=== PATIENT | male | born 1985 | race Caucasian/White ===

== ENCOUNTER 2021-11-04 09:58 | Emergency (ER) | payer MEDICAID, SELFPAY ==
[2021-11-04 09:59] VITALS: BP 125/75; PULSE 84; RESP 18; TEMP 36.1; O2SAT 100; BMI 22.4
--- NOTE | 2021-11-04 10:30 | RAD_ITS ---
STUDY: X-RAY CHEST REASON FOR EXAM: Male, 36 years old. ] Injury following a fall. TECHNIQUE: PA and lateral views of the chest. COMPARISON: None. FINDINGS: Hyperinflation. Scattered calcified granulomas. No acute abnormality is seen. There is no demonstrated pleural abnormality. Normal size heart. Normal mediastinum and bob. Normal visualized pulmonary arteries. Normal visualized aortic arch and descending thoracic aorta. Normal visualized thoracic spine. Normal visualized ribs, clavicles, and shoulders. There is no demonstrated abnormality of the visualized soft tissue structures of the upper abdomen. RAD/Chest PA and Lateral IMPRESSION: Normal x-ray examination of the chest. Electronically Signed: Brad Pelaez MD at 11:14 EDT ,
--- NOTE | 2021-11-04 10:33 | ED.VIS.CHEST ---
HPI History of Present Illness Chief Complaint: Chest Other Detail of Chief Complaint: Fell injuring right lateral rib cage Informant: patient Onset/Context/Timing Onset: Yesterday Activity at onset: sudden Timing: Continuous Quality: Positive for Pain and Sharp Location: Right Chest Current Severity: Moderate Maximum Severity: Moderate Worsened By: Movement of Arm and Movement of Torso Relieved By: Remaining Still Narrative Narrative: 36-year-old male no seen past medical history. Was wrestling with his 15-year-old son yesterday. He fell and injured his right rib cage on the floor. Complaining of pain to his right lateral rib cage. No prior history. No other complaints. Did not hit his head. No LOC. Prior Similar Symptoms: No Recent Illness/Hospitalization: No CVD Risk Factors: Negative for Hypertension, Diabetes and Hypercholesterolemia PE Risk Factors: Negative for Recent Travel/Surgery, Recent Immobilization, Prior DVT or PE and OCP + Smoking + >/=35 PFSH PFSH Medical History no medical history no medical history Home Medications hydrocodone-acetaminophen 1 tab PO Q4H PRN 3 Days #10 tab NS 11/04/21 [Rx Last Taken Unknown] Allergy/AdvReac Type Severity Reaction Status Date / Time No Known Allergies Allergy Verified 11/04/21 10:01 Surgical History no surgical history no surgical history Social History Smoking Status: Current every day smoker tobacco type: e-cigarettes ROS ROS ED ROS Narrative Denies recent illness. Review of Systems ROS Unobtainable: Denies due to encephalopathy Constitutional Constitutional ED: Denies fever(s) Eyes Eyes: Denies none ENT ENT ED: Denies ear pain Cardiovascular Cardiovascular: Reports as per HPI and chest pain Respiratory/Chest Respiratory/Chest: Denies cough or dyspnea Gastrointestinal Gastrointestinal: Denies abdominal pain or nausea Genitourinary Genitourinary ED: Denies dysuria Musculoskeletal Musculoskeletal: Denies myalgias Integumentary Denies rash Neurologic Neurologic: Denies headache(s) Psychiatric Psychiatric: Denies depression Endocrine Endocrinology: Denies polyuria Hematologic/Lymphatic Hematologic/Lymphatic: Denies easy bruising Allergic/Immunologic Allergic/Immunologic ED: Denies urticaria EXAM Physical Exam Narrative Exam Narrative: 36-year-old male no acute distress standing upright in the room. Vital signs stable afebrile. Pulse ox 100% on room air no signs hypoxia. HEENT exam unremarkable. Moist mucous membranes. Atraumatic. Neck nontender. Lungs clear to auscultation bilaterally. Heart regular rate and rhythm no murmur. Rate about 80. Chest wall tender on the right lateral rib cage. No crepitance or subcu air. No bruising or bony deformities. Abdomen soft nontender. Otherwise exam normal. Const Vital Signs: 11/04/21 09:59 Temperature 97 F L Temperature Source Temporal Pulse Rate 84 Respiratory Rate 18 Blood Pressure 125/75 H Blood Pressure Mean 91 Pulse Ox 100 Oxygen Delivery Method Room Air Positive well nourished and well developed; Negative for obese, cachectic, contractures or unkempt General Appearance ED: well developed and NAD; Negative for unkempt, cachectic, contractures or pallor Nutritional Appearance: Negative for cachectic or obese HEENT Reports moist mucous membranes normocephalic and atraumatic Eyes PERRL and EOMs intact bilaterally General Eye ED: Negative for pale conjunctiva or scleral icterus Neck no lymphadenopathy, supple and no JVD General: Negative for tenderness Chest Wall inspection of chest normal and palpation of chest normal Chest Narrative: Right lateral chest wall tenderness. No crepitance or subcu air. No bruising. No bony deformity. Chest: tenderness Resp normal respiratory effort and clear to auscultation bilaterally Effort and Inspection: respiratory distress Auscultation: Negative for rales, rhonchi or wheezes Cardio regular rate, regular rhythm, S1 normal heart sound, S2 normal heart sound and no murmurs Rate: Negative for bradycardia or tachycardic Rhythm: Negative for abnormal rhythm GI normal to inspection, nondistended, normoactive bowel sounds, soft to palpation, non-tender, non-distended and no masses Back/Spine no CVA tenderness and no thoracic nor lumbar tenderness General Back: Negative for CVA tenderness Cervical Spine: Negative for cervical spine tenderness Extremity normal to inspection General Extremety ED: Negative for edema or tenderness General Extremity: Negative for edema Neuro oriented x3 Sensorium / Orientation: awake, alert, oriented to person, oriented to place and oriented to time Motor Exam: strength 5/5 throughout Psych mental status grossly normal Appearance: Negative for unkempt Attitude: No agitated Mood & Affect: anxious; Negative for depressed or tearful Skin no rashes or lesions noted and no wounds General Skin Exam: Negative for jaundice or pallor Rashes: No rashes noted MDM MDM MDM Narrative Medical decision making narrative: 36-year-old male injured his right rib cage wrestling with his son yesterday when he fell. Chest x-ray being obtained. To be treated with 2 [place]. Repeat exam patient doing well at 11:30 AM. To be discharged home with limited [place] for pain 10 no refill. Motrin. Ice. I did explain doing the chest x-rays can sometimes miss nondisplaced rib fractures. It would not be treated any differently. Limited [place]. Motrin for pain. Ice and a pillow to support area. Follow-up if not improving. Radiography Chest X-Ray - ED: 2 View, Read by ED Physician, Read by Radiologist, Heart, Lungs, Mediastinum, Bony Structures and No Acute Disease Diagnostic Testing: Clinical Impression(s) from Imaging Studies Chest X-Ray 11/04/21 10:30 IMPRESSION: Normal x-ray examination of the chest. Electronically Signed: Brad Pelaez MD at 11:14 EDT , Chest x-ray, 2 views AP and lateral interpreted myself and radiologist shows no acute abnormality. No obvious rib fracture. No pneumothorax. Normal cardiac silhouette. I did go over the film with the patient. Discharge Plan Triage Chief Complaint: Chest Other ED Provider: William Jo Dx/Rx/DC Orders Clinical Impression: Contusion of rib on right side Instructions: ED Contusion, Rib Prescriptions: New hydrocodone-acetaminophen 5-325 mg tablet 1 tab PO Q4H PRN (Reason: pain) 3 Days Qty: 10 RF: 0 Primary Care Provider: Care Physician,No Primary Referrals: Timo Wise MD [STAFF PHYSICIAN] - 10-14 Days if not better Care Physician,No Primary [Primary Care Provider] - Activity Restrictions/Additional Instructions: Motrin for pain and swelling. [place] for more severe pain. Ice to the area. Use a pillow for support. Follow-up if not improving. Disposition Disposition: Home, Self Care
[2021-11-04] MEDS: HYDROcodone Bitartrate/Apap 5/325 Tablet PO (10:41)
== END 2021-11-04 11:45 | disposition home or self-care (01) ==
PROVIDERS: Emergency Provider Emergency Medicine; Visit Provider Emergency Medicine
DX: S20.211A Contusion of right front wall of thorax, initial encounter (principal); W19.XXXA Unspecified fall, initial encounter; F17.210 Nicotine dependence, cigarettes, uncomplicated
CPT/HCPCS: 71046; 99283